=== PATIENT | female | born 1970 | race African-American/Black ===

== ENCOUNTER 2016-04-23 06:18 | Inpatient (IN) | payer OTHER ==
[2016-04-22 10:03] VITALS: BMI 29.2
--- NOTE | 2016-04-23 06:50 | HP ---
History & Physical Update - History History: No Change - Physical Physical: No Change - Assessment Assessment: No Change - Plan Plan: No Change (This is my first time meeting the patient. I explained to her that either myself or colleague (Arielle Kingston) will be assisting Dr. Pruett during the case.)
[2016-04-23] MEDS ORDERED: BUPIVACAINE HCL/PF 0.5% (5MG/ML) 10 ML VIAL ONE (07:39)
[2016-04-23] MEDS ORDERED: BACITRACIN 30 GM TUBE TOPICAL OINTMENT ONE (07:39)
[2016-04-23] MEDS ORDERED: MIDAZOLAM HCL 2 MG/2 ML SINGLE DOSE VIAL ONE (07:58)
[2016-04-23] MEDS ORDERED: PROPOFOL 20 ML ONE ×2 (08:04→08:05)
[2016-04-23] MEDS ORDERED: ROCURONIUM BROMIDE 50 MG/5 ML VIAL ONE (08:08)
[2016-04-23] MEDS ORDERED: ceFAZolin SODIUM 1 GM VIAL ONE (08:35)
[2016-04-23] MEDS ORDERED: LIDOCAINE HCL/PF 2% SDV 5ML VIAL ONE (08:35)
[2016-04-23] MEDS ORDERED: THROMBIN (BOVINE) 5,000 UNIT VIAL TP ONE (08:41)
[2016-04-23] MEDS ORDERED: BACITRACIN 50,000 UNITS VIAL TP ONE (08:41)
[2016-04-23] MEDS ORDERED: ONDANSETRON 4 MG/2 ML VIAL ONE (09:42)
[2016-04-23] MEDS ORDERED: DEXAMETHASONE SOD PHOSPHATE 4 MG/1 ML VIAL ONE (09:42)
[2016-04-23] MEDS ORDERED: GLYCOPYRROLATE 0.2 MG/1 ML VIAL ONE (09:42)
[2016-04-23] MEDS ORDERED: NEOSTIGMINE METHYLSULFATE 0.5 MG/ML - 10 ML MDV ONE (09:43)
[2016-04-23] MEDS ORDERED: ONDANSETRON 4 MG/2 ML VIAL IVPB PRN (10:07)
--- NOTE | 2016-04-23 10:07 | OP ---
Operative Note - Note: Operative Date: 04/23/16 Pre-Operative Diagnosis: Large L L5-S1 HNP, L L4-5 foramenal stenosis Operation: Partial L L4 and L5 laminectomies including medial facetectomy and L L4-5 foramenotomy for decompression of L L4 and L5 roots; L L5-S1 laminotomy for microdiscectomy; microdissection Findings: Fibrotic large disc hernatiion L L5-S1; L L4-5 lateral recess and foramenal narrowing Implants: Active barrier 4x4 cm Post-Operative Diagnosis: Same as Pre-op Surgeon: Harjinder Pruett (Aisha co-lind) Lands Resource Manager: Arielle Kingston Anesthesiologist/MANUFACTURING DEVELOPMENT ENGINEER: Kathia Monreal MD Anesthesia: General Specimens Removed: L5-S1 HNP Estimated Blood Loss (mls): 25
[2016-04-23] MEDS ORDERED: HYDROmorphone HCL CARPU-JECT 1 MG/1 ML DISP.SYRIN IVPB PRN (10:08)
[2016-04-23] MEDS: LACTATED RINGERS SOLUTION 1,000 ML IV SCH (12:30)
[2016-04-23] MEDS: D5-1/2NS+20 MEQ KCL - 1,000 ML IV SCH (15:40)
--- NOTE | 2016-04-23 16:40 | PN ---
Progress Note (short form) - Note Progress Note: POST-OP check Pt states that her pain level is around a 2 to 3, she was oob and ambulated to the bathroom to void. Vital Signs Period Temp Pulse Resp BP Sys/Cruz Pulse Ox Last 24 Hr 98.1 F-98.4 F 80-96 16-22 109-144/68-90 97-100 PE: GEN: alert and in NAD LE: 5/5 dorsi/plantar/EHL flexion b/l. Calves with SCDs in place. Gait steady. A/P: 46 yo female s/p Partial L L4 and L5 laminectomies for decompression of L L4 and L5 roots; L L5-S1 laminotomy for microdiscectomy Pt doing well post-operatively, oob and ambulating. Voiding on her own. Tolerating clears and pain controlled. Lucita-operative IV antibiotics
[2016-04-23] MEDS ORDERED: INFLUENZA VACCINE 45 MCG/0.5 ML (MDV 16-17) IM ONE (16:45)
[2016-04-23] MEDS: DOCUSATE SODIUM 100 MG CAPSULE (FP) PO SCH ×2 (17:48→22:11)
[2016-04-23] MEDS: diazePAM 5 MG TABLET PO SCH ×2 (17:48→18:40)
[2016-04-23] MEDS: CEFAZOLIN (PRE-DOCKED) 50 ML IVPB SCH (18:40)
--- NOTE | 2016-04-23 20:05 | OP ---
DATE OF OPERATION: 04/23/2016 PREOPERATIVE DIAGNOSIS: L5-S1 disk and L4-5 and L5-S1 radiculopathy. PROCEDURE: Left-sided L4-5 and L5-S1 laminectomy and L5-S1 microdiskectomy. SURGICAL ATTENDING: Jacob Leonard MD; Harjinder Pruett MD, neurosurgeon ANESTHESIA: General. POSITION: Prone. CLOSURE: 0 for fascia, 3-0 for subcutaneous, and 4-0 undyed Vicryl for skin. ESTIMATED BLOOD LOSS: Less than 100 mL. COMPLICATIONS: None. CONDITION: To recovery room in stable condition. DESCRIPTION OF OPERATIVE PROCEDURE: The patient was informed prior to the case that myself, Dr. Jacob Leonard, would be involved in the opening and the closing of the procedure but the laminectomy and diskectomy portion of the procedure would be performed by Dr. Harjinder Pruett. The patient was taken to the operating room on April 23, 2016, intubated, and IV Kefzol was administered. Patient was placed in the prone position with all prominences well padded. The lower lumbar region was prepped and draped in the usual sterile fashion. A 2 to 3 inch incision over the spinous processes was made. Hemostasis achieved with Bovie cautery. Subperiosteal dissection was done, carried along the left side of the processes down to the level of the lamina. At this point Dr. Brendan Pruett took over and performed the laminectomy and the diskectomy. Please see his dictation for further description of the pathology and the procedure. Post Dr. Pruett's procedure, the incision was closed in layers with 0 Vicryl for the fascia, 3-0 for subcutaneous, and 4-0 undyed Vicryl for skin with Steri-Strips and a pressure dressing. The patient was placed in the supine position, transferred to recovery room in stable condition after being extubated. Estimated blood loss was less than 100 mL. Dewey AVERY/[id number]
[2016-04-24] MEDS: diazePAM 5 MG TABLET PO SCH ×4 (02:06→23:41)
[2016-04-24] MEDS: CEFAZOLIN (PRE-DOCKED) 50 ML IVPB SCH (02:06)
[2016-04-24] MEDS: D5-1/2NS+20 MEQ KCL - 1,000 ML IV SCH ×2 (02:13→11:29)
[2016-04-24] MEDS: DOCUSATE SODIUM 100 MG CAPSULE (FP) PO SCH ×3 (07:14→21:50)
--- NOTE | 2016-04-24 07:42 | PN ---
Progress Note (short form) - Note Progress Note: NEUROSURGERY POD #1 Mild incisional pain Difficulty getting OOB secondary to spasm Tmax 98.6, VSS Motor 5/5 b LE Sensation intact LT Dressing with mild bloody discharge- changed by RN PT/OOB Pain meds prn Incentive spirometry Cont valium for muscle relaxation
[2016-04-24] MEDS: oxyCODONE HCL 5 MG TABLET PO PRN ×2 (09:06→18:18)
[2016-04-24] MEDS: LACTATED RINGERS SOLUTION 1,000 ML IV SCH (11:30)
--- NOTE | 2016-04-24 15:04 | OP ---
DATE OF OPERATION: 04/23/2016 PREOPERATIVE DIAGNOSES: 1. L4-5 foraminal annular tear, foraminal stenosis, and lateral recess stenosis. 2. Left L5-S1 extruded disk herniation with thecal sac and left S1 nerve root impingement. POSTOPERATIVE DIAGNOSES: 1. L4-L foraminal annular tear, foraminal stenosis, and lateral recess stenosis. 2. Left L5-S1 extruded disk herniation with thecal sac and left S1 nerve root impingement. ATTENDING SURGEON: Harjinder Pruett MD CO-SURGEON: Jacob Leonard MD DIRECTOR OF PEOPLE: KELSEY Stein PROCEDURE: 1. Partial left L4 and L5 laminectomies including medial facetectomy and foraminotomy for decompression of thecal sac as well as left L4 and L5 nerve roots (46976-17, [id number]). 2. Left L5-S1 laminotomy and microdiscectomy ([id number]). 3. Microsurgical dissection with the operating microscope and microsurgical techniques ([id number]). FINDINGS: 1. Fibrotic extruded disk herniation centrally at left L5-S1 with thecal sac and left S1 nerve root impingement. 2. Slightly atrophic-appearing left S1 nerve root. 3. Lateral recess stenosis, L4-5 and L5-S1. INDICATIONS: The patient is a 46-year-old female with several-month history of relatively acute onset of lower back pain and left lower extremity radiculopathy. On examination, she has left L5 and S1 radiculopathy. MRI demonstrated both L4-5 stenosis and L5-S1 extruded disk herniation. Because of intractable symptoms, neurological deficits as well as persistent pain as well as her radicular pain, she is now consented for left L4-5 decompression and left L5-S1 microdiscectomy. The risks of the procedure include but are not limited to bleeding, infection, dural tear with CSF leak, neurological injury, recurrent disk herniation, increased medical risks including ND, DVT, PE, stroke, and other risks of general anesthesia. The patient understood the indications for the procedure, procedure in detail, risks and benefits, and alternatives for treatment of her lumbar condition and wished to proceed. No guarantees given for a favorable outcome. PROCEDURE IN DETAIL: After the patient was taken to the operating room, she was placed in supine position. After general anesthesia was induced and appropriate monitoring lines were placed, she was turned into a prone position on a Albino frame. All pressure points checked and padded. O2 saturation bilateral lower extremities was 100%. Lumbar region cleaned with alcohol and prepped with Betadine, and x- ray was obtained with a spinal needle in place, localized to L4-5. An approximately 2-1/2 inch incision was opened in the midline. Subperiosteal dissection was carried out on the left side only with periosteal elevator from L4 to S1. Two self- retaining retractors were inserted. X-ray was obtained with a clamp at the L4-5 interlaminar space. After position was verified, partial left L4 and L5 laminectomy including medial facetectomy and foraminotomy were carried out with a high-speed pneumatic drill, angled curette, and Kerrison rongeur. Medial facetectomy and foraminotomy were further carried out with angled curette and Kerrison rongeur as well as high-speed pneumatic drill. The neuroforamen was opened up with angled curette and Kerrison rongeur further. The ligamentum flavum was dissected through with an angled curette and resected with Kerrison rongeurs similarly. Care was taken to protect the dura and the nerve roots. Both the L4 and L5 nerve roots were decompressed on the left side. Attention then turned toward the L5-S1 interspace. Amilcar-laminotomy was carried out on the left at L5 and S1 to gain access to the lateral recess. A small amount of medial facetectomy was also carried out to safely resect the disk material. The left S1 appeared slightly atrophic and was dissected with a [place]. The distal annulus was incised in the vertical fashion. The underlying disk fragments were mobilized with a dental tool as well as a blunt nerve hook. The disk fragments were quite fibrotic and were retrieved in sections. Multiple portions of the disk fragments were removed, and after sterile decompression and medial and lateral exploration of the subligamentous space, further fragments were removed. Valsalva maneuver was performed, and there was no CSF leak. The neuroforamen was thoroughly decompressed at the left side L5-S1. The S1 nerve root was followed towards the respected neuroforamen S1-2. The wound was irrigated with antibiotic-containing irrigation. A piece of 4 x 4 cm active barrier membrane was cut in half and 1/2 was placed at L4-5 and L5-S1 after it was further irrigated. Next, 10 mL of 0.5% Marcaine were injected into the paraspinal muscles on the left side only. Both the opening and closures were dictated under separate heading by Dr. Leonard. The patient received 1 g of Ancef prior to the incision. All needles and lap counts were correct. The OR timeout procedure was followed. The patient was turned back to supine position, moving bilateral lower extremities well after she was extubated. The patient stated she has no friend or family around, and the patient's intraoperative findings as well as postoperative condition was communicated with Dr. Belinda Bradley, per the patient's request. HARJINDER PRUETT M.D. cc: Jacob Leonard MD TL/[id number] MTDD
--- NOTE | 2016-04-24 16:51 | PATH ---
Surgical Pathology Report Patient Name: PIPO VILA [facility]. Rec. #: [id number] /Age/Gender: 1970 (Age: 46) / F Account: [id number] Location: [facility] MED/SURG Taken: 04/23/2016 Received: 04/23/2016 Reported: 04/24/2016 Physicians: Harjinder Pruett M.D. Specimen(s) Received DISC LEFT L5-S1 Clinical History Intravertebral disc replacement, spinal stenosis Final Diagnosis INTERVERTEBRAL DISC, LEFT L5-S1, PARTIAL EXCISION: PORTIONS OF INTERVERTEBRAL DISC. Electronically Signed Steven Alvarado M.D. Gross Description Received in formalin, labeled "left L5-S1 disc," is a 3.5 x 3.0 x 0.4 cm aggregate of multiple zepeda fragments of fibrocartilaginous tissue and possible bone. A access services representative portion is submitted in one cassette, following decalcification. 04/23/201604/23/2016
[2016-04-25] MEDS: oxyCODONE HCL 5 MG TABLET PO PRN (01:45)
[2016-04-25] MEDS: DOCUSATE SODIUM 100 MG CAPSULE (FP) PO SCH ×2 (06:08→14:05)
[2016-04-25] MEDS: diazePAM 5 MG TABLET PO SCH ×2 (06:09→14:05)
--- NOTE | 2016-04-25 07:42 | PN ---
Progress Note (short form) - Note Progress Note: NEUROSURGERY POD #2 Mild incisional pain Tmax 99.1, VSS, HR 100-110 CV-RR; Lungs- CTA B; Abd- benign; Ext- no sign of DVt, SCD's working Motor 5/5 b LE Sensation intact LT Dressing with mild bloody discharge- changed by RN PT/OOB Pain meds prn Bowel regimen Incentive spirometry Cont valium for muscle relaxation
[2016-04-25 08:56] LABS: BASOPHIL 0.5 % (0-2.0); EOSINOPHIL 2.3 % (0-4.5); MCH 33.6 pg (25.7-33.7); MEAN CELL VOLUME 101.8 fl (80-96); MEAN PLT VOLUME 7.2 fl (7.5-11.1); NEUTROPHILS 78.5 % (42.8-82.8); PLATELET COUNT 303 K/MM3 (134-434); RDW 13.6 % (11.6-15.6); WHITE BLOOD COUNT 11.1 K/mm3 (4.0-10.0)
[2016-04-25] MEDS ORDERED: MAGNESIUM CITRATE 300 ML BOTTLE PO ONE (09:00)
[2016-04-25] MEDS: D5-1/2NS+20 MEQ KCL - 1,000 ML IV SCH (10:27)
[2016-04-25] MEDS: LACTATED RINGERS SOLUTION 1,000 ML IV SCH (11:43)
[2016-04-25 14:10] VITALS: BP 128/76; PULSE 102; TEMP 98.1
[2016-04-25] MEDS ORDERED: levETIRAcetam 500 MG TABLET (FP) PO STA (16:48)
[2016-04-25] MEDS ORDERED: CEPHALEXIN MONOHYDRATE 500 MG CAPSULE (UD) PO ONE (17:30)
--- NOTE | 2016-04-28 16:56 | SURG ---
Surgery Director Financial Services Note Director Financial Services: Arielle Kingston PA-C Date of Service: 04/23/16 Diagnosis: Pre-Operative Diagnosis: Large L L5-S1 HNP, L L4-5 foramenal stenosis Procedure: Operation: Partial L L4 and L5 laminectomies including medial facetectomy and L L4-5 foramenotomy for decompression of L L4 and L5 roots; L L5-S1 laminotomy for microdiscectomy; microdissection I was present for the entirety of the operative procedure. For further detail, please refer to operative report. Visit type - Case Type Case Type: Scheduled Admission - Emergency Emergency Visit: No - New patient This patient is new to me today: Yes Date on this admission: 04/28/16 - Critical Care Critical Care patient: No
== END 2016-04-25 17:50 | disposition home or self-care (01) | DRG 517 ==
LOC: JSAMEDAYSX 06:18 → J8W 16:00
PROVIDERS: ADMIT Orthopaedic Surgery; ATTEND Neurological Surgery
PROC: 01NB0ZZ Release Lumbar Nerve, Open Approach (ICD-10-PCS; principal; 2016-04-23 08:00)
DX: M51.27 Other intervertebral disc displacement, lumbosacral region (principal); M48.07 Spinal stenosis, lumbosacral region; M54.17 Radiculopathy, lumbosacral region
CPT/HCPCS: 36415; 72100-TC; 84703; 85025; 86850; 86900; 86901; 88304-TC; 94010; 94760; 97116-GP; 97161-GP; G0008; Q2037